=== PATIENT | female | born 1990 | race Caucasian/White ===

== ENCOUNTER 2016-04-04 22:34 | Observation (INO) | payer OTHER ==
--- NOTE | 2016-04-04 22:45 | EDPHY ---
H & P Stated Complaint: pt c/o R flank/lower back x 2 days HPI/ROS: HPI CHIEF COMPLAINT: Right lower quadrant and right upper quadrant abdominal pain HISTORY OF PRESENT ILLNESS: This patient very pleasant 25-year-old female, denies any significant medical history except for anxiety and depression, only surgical history is for laparoscopic of the abdomen to rule out endometriosis which she does not have, she presents to the emergency room with progressively worsening of 2 days of right lower quadrant abdominal pain and right upper quadrant abdominal pain.patient tells me that is worse on the right upper quadrant than right lower quadrant, Patient states she does have nausea with this however no fever, no vomiting. Patient tells me that for the past 2 days she has had a progression of onset of abdominal pain it is most focally tender periumbilical right lower quadrant. Denies urinary symptoms, denies fever, denies back pain. She does tell me that the pain sometimes radiates around to the right flank. Past Medical History:Includes anxiety, depression Past Surgical History: laparoscopic for endometriosis Social History: Lives in [place], works as a medical administrator here at [employer] denies daily use drugs alcohol tobacco products Family History: Noncontributory ROS REVIEW OF SYSTEMS: A comprehensive 10 point review of systems is otherwise negative aside from elements mentioned in the history of present illness. Exam Constitutional triage nursing summary reviewed, vital signs reviewed, awake/ alert. Eyes normal conjunctivae and sclera, EOMI, PERRLA. HENT normal inspection, atraumatic, moist mucus membranes, no epistaxis, neck supple/ no meningismus, no raccoon eyes. Respiratory clear to auscultation bilaterally, normal breath sounds, no respiratory distress, no wheezing. Cardiovascular rate normal, regular rhythm, no murmur, no edema, distal pulses normal. Gastrointestinal soft, mild tender palpation in the right lower quadrant,also has some mild tenderness in the right upper quadrant, no guarding or peritoneal signs, , normal bowel sounds, no distension, no pulsatile mass. Genitourinary no CVA tenderness. Musculoskeletal no midline vertebral tenderness, full range of motion, no calf swelling, no tenderness of extremities, no meningismus, good pulses, neurovascularly intact. Skin pink, warm, & dry, no rash, skin atraumatic. Neurologic awake, alert and oriented x 3, AAOx3, moves all 4 extremities equally, motor intact, sensory intact, CN II-XII intact, normal cerebellar, normal vision, normal speech. Psychiatric normal mood/affect. Heme/Lymph/Immune no lymphadenopathy. Differential diagnosis includes but is not limited to and in no particular order : Bowel obstruction, appendicitis, gallbladder disease, diverticulitis, colitis , enteritis, perforated viscus, gastritis, GERD, esophagitis, urinary tract infection, pyelonephritis, kidney stones Medical Decision Making: The patient had an IV established will obtain blood work, she received IV fluid bolus normal saline, IV morphine 4 mg, IV Phenergan 6.25 mg for nausea, she will need a CT scan of her abdomen pelvis with IV contrast to rule out acute appendicitis, will check urinalysis, . Re-evaluation: CT scan of the abdominal with IV contrast. The results of the study are negative for acute inflammation specifically cannot visualize the appendix however no evidence of secondary findings of acute appendicitis, it is noted that her gallbladder looks distended, multiple gallstones no pericholecystic fluid or inflammation seen on CT. The study was read by Dr. Mon . I viewed the images myself on the PACS system. Ultrasound of the Abdomen right upper quadrant. The results of the study are this shows distended gallbladder, sludge and multiple gallstones in the gallbladder, there is a 1.5 cm impacted gallstone in the gallbladder neck no ductal dilatation, no significant gallbladder wall thickening . I discussed the results of this study with the radiologist Dr. Vasquez. 0130: I have consulted Dr. No with General surgery to admit this patient for biliary colic, impacted stone in the gallbladder neck. At this time he is evaluating the patient in the emergency room. Plan is for admission pain control IV antibiotics most likely laparoscopic cholecystectomy Source: Patient - Medical/Surgical History Hx Asthma: Yes Hx Chronic Respiratory Disease: No Hx Diabetes: No Hx Cardiac Disease: No Hx Renal Disease: No Hx Cirrhosis: No Hx Alcoholism: No Hx HIV/AIDS: No Hx Splenectomy or Spleen Trauma: No Other PMH: Depression, reactive airway disease, abd laproscopy - Social History Smoking Status: Never smoked Constitutional: Initial Vital Signs Temperature (C) 37.1 C 04/04/16 22:37 Heart Rate 77 04/04/16 22:37 Respiratory Rate 16 04/04/16 22:37 Blood Pressure 144/77 H 04/04/16 22:37 O2 Sat (%) 98 04/04/16 22:37 O2 Delivery Mode Room Air Allergies/Adverse Reactions: metronidazole [From Flagyl] Allergy (Verified 04/04/16 22:40) sunscreen Allergy (Uncoded 04/13/14 22:00) Home Medications: Medication Instructions Recorded Sertraline HCl [Zoloft 50mg (*)] 50 mg PO DAILY 04/13/14 Levonorgestrel-Ethin Estradiol 1 each PO HS 04/04/16 [Quasense 0.15-0.03 mg Tablet] buPROPion SR [Wellbutrin 100mg SR 100 mg PO BID 04/04/16 (*)] ALPRAZolam [Xanax 0.5 MG (*)] 0.5 mg PO HS PRN 04/05/16 Herbals/Supplements -Info Only 1 ea PO DAILY 04/05/16 Zolpidem Tartrate [Ambien 5MG (*)] 10 mg PO HS PRN 04/05/16 oxyCODONE/APAP 5/325 [Percocet 1 - 2 tab PO Q4 PRN #10 tab 04/05/16 5/325 (*)] Medical Decision Making - Data Points Laboratory Results: Laboratory Results 04/04/16 22:58 Microbiology Results: MICROBIOLOGY 04/04/16 22:59 Urine,Clean Catch Urine Culture - Preliminary Medications Given: Discontinued Medications Hydromorphone HCl (Dilaudid) 0.2 - 0.4 mg IVP Q4 PRN PRN Reason: Pain, Severe Unable to Take PO Stop: 04/15/16 01:45 Last Admin: 04/05/16 08:38 Dose: 0.4 mg Sodium Chloride (Ns) 1,000 mls @ 0 mls/hr IV ONCE ONE PRN Reason: Wide Open Stop: 04/04/16 22:52 Last Admin: 04/04/16 23:05 Dose: 1,000 mls Potassium Chloride (Potassium Cl 20 Meq (Premix)) 100 mls @ 50 mls/hr IV EDNOW ONE Stop: 04/05/16 02:49 Last Admin: 04/05/16 02:05 Dose: 100 mls Ertapenem 1 gm/ Sodium (Chloride) 100 mls @ 200 mls/hr IV EDNOW ONE PRN Reason: Protocol Stop: 04/05/16 01:24 Last Admin: 04/05/16 01:32 Dose: 100 mls Potassium Chloride/Dextrose/Sod Cl (D5w 1/2 Ns W/ 20 Kcl/L) 1,000 mls @ 125 mls /hr IV CONT [facility] Stop: 10/02/16 01:59 Last Admin: 04/05/16 02:40 Dose: 1,000 mls Ertapenem 1 gm/ Sodium (Chloride) 100 mls @ 200 mls/hr IV DAILY [facility] PRN Reason: Protocol Stop: 05/05/16 08:59 Last Admin: 04/05/16 08:37 Dose: 100 mls Ketorolac Tromethamine (Toradol) 15 mg IVP Q6 [place] Stop: 04/10/16 07:30 Last Admin: 04/05/16 12:21 Dose: 15 mg Ketorolac Tromethamine (Toradol) 30 mg IVP POSTOP ONE Stop: 04/05/16 07:25 Last Admin: 04/05/16 08:29 Dose: Not Given Morphine Sulfate (Morphine) 4 mg IVP EDNOW ONE Stop: 04/04/16 22:52 Last Admin: 04/04/16 23:05 Dose: 4 mg Ondansetron HCl (Zofran) 4 mg IVP Q4 PRN PRN Reason: Nausea/Vomiting, Use 1st Stop: 10/02/16 01:45 Last Admin: 04/05/16 02:40 Dose: 4 mg Oxycodone/Acetaminophen (Percocet 5/325) 1 - 2 tab PO Q4 PRN PRN Reason: Pain, Severe Able to Take PO Stop: 04/15/16 07:23 Last Admin: 04/05/16 10:37 Dose: 1 tab Promethazine HCl (Phenergan Injection) 6.25 mg IVP EDNOW ONE Stop: 04/04/16 22:52 Last Admin: 04/04/16 23:06 Dose: 6.25 mg Departure - Departure Disposition: [facility] Inpatient Acute Clinical Impression: Gallstones Condition: Fair
[2016-04-04] MEDS ORDERED: NS 1,000 ML IV ONE (22:51)
[2016-04-04] MEDS ORDERED: PROMETHAZINE HCL 25 MG/ML VIAL IVP ONE (22:51)
[2016-04-04] MEDS ORDERED: PROMETHAZINE HCL 25 MG/ML VIAL ONE (22:53)
[2016-04-04 22:58] LABS: COLOR YELLOW; LEUKOCYTE ESTERASE,URINE TRACE (NEGATIVE); NITRITE,URINE NEGATIVE (NEGATIVE)
[2016-04-04 23:00] LABS: BACTERIA TRACE /hpf (NONE SEEN)
[2016-04-04] MEDS ORDERED: IOPAMIDOL (ISOVUE-300) 50 ML VIAL IV ONE (23:02)
[2016-04-04 23:04] LABS: % IMMATURE GRANULYOCYTES 0.3 % (0.0-1.1); ABSOLUTE IMMATURE GRANULOCYTES 0.03 10^3/uL (0.00-0.10); ADD DIFF? NO; ADD MORPH? NO; ADD SCAN? NO; ATYPICAL LYMPHOCYTE FLAG 0 (0-99); FRAGMENT RBC FLAG 0 (0-99); HEMOGLOBIN 14.3 g/dL (12.6-16.3); LEFT SHIFT FLG 0 (0-99); LIPEMIA HEMOLYSIS FLAG 80 (0-99); MEAN CELL HEMOGLOBIN 29.5 pg (27.9-34.1); MEAN CELL HEMOGLOBIN CONCENTR. 33.3 g/dL (32.4-36.7); MEAN CELL VOLUME 88.8 fL (81.5-99.8); MEAN PLATELET VOLUME 10.8 fL (8.7-11.7); PLATELET CLUMPS FLAG 20 (0-99); PLATELET COUNT 294 10^3/uL (150-400); RED BLOOD CELL COUNT 4.84 10^6/uL (4.18-5.33); RED CELL DISTRIBUTION WIDTH 12.9 % (11.5-15.2)
[2016-04-04 23:13] LABS: APTT 27.5 SEC (23.0-38.0); INR 0.99 (0.83-1.16)
[2016-04-04 23:33] LABS: ALBUMIN 3.9 g/dL (3.5-5.0); BILIRUBIN,TOTAL 0.6 mg/dL (0.1-1.4); BILIRUBIN-CONJUGATED 0.3 mg/dL (0.0-0.5); BILIRUBIN-UNCONJUGATED 0.3 mg/dL (0.0-1.1); TOTAL PROTEIN 7.2 g/dL (6.3-8.2)
[2016-04-05] MEDS ORDERED: POTASSIUM Cl (KCl) 100 ML IV ONE (00:50)
[2016-04-05] MEDS ORDERED: ERTAPENEM 1 GM in NS 100 ML IV ONE (00:55)
[2016-04-05] MEDS ORDERED: ONDANSETRON 4 MG/2 ML VIAL IVP PRN (01:46)
[2016-04-05] MEDS ORDERED: D5W 1/2 NS W/ 20 KCl/L 1,000 ML IV SCH (02:00)
--- NOTE | 2016-04-05 02:12 | GHP ---
[f rep st] PREOP HISTORY AND PHYSICAL DATE OF ADMISSION: 04/05/2016 HISTORY OF PRESENT ILLNESS: A 25-year-old female with right upper quadrant abdominal pain radiating into her back. She has had the pain off and on for 2 days, admitted at this time for laparoscopic ch olecystectomy. Gallbladder ultrasound shows multiple stones with 1 impacted in the neck of the gallb ladder. LFTs were normal. She is quite comfortable in between bouts of pain. She does not know of any definite foods that bring this on. She has had no vomiting, no diarrhea, no fever and no abdomin al trauma. A CT scan also shows gallstones, no other etiology for her pain. PAST HISTORY: Includes laparoscopy for possible endometriosis. REVIEW OF SYSTEMS: Reveals she has some depression. PRESENT MEDICATIONS: Wellbutrin, sertraline and an allergy pill. ALLERGIES: Flagyl. PHYSICAL EXAM: GENERAL: Reveals an alert and comfortable 25-year-old female, in no acute distress. VITAL SIGNS: She is afebrile. HEAD AND NECK: No icterus. CHEST: Clear to auscultation and percu ssion. CARDIAC: Regular rhythm. ABDOMEN: Soft. She is tender in the right upper quadrant. No gu arding or rebound. No hernias. No abdominal masses. IMPRESSION: Symptomatic cholelithiasis. PLAN: Laparoscopic cholecystectomy. Risks and options have been fully discussed and she wishes to p camiloeed. We have discussed bile duct injury, retained stones, need for further surgery, hemorrhage, i nfection and other problems and she requests that we proceed. /[id number]/MODL
[2016-04-05 02:38] LABS: AMYLASE 62 IU/L (30-110)
[2016-04-05] MEDS: HYDROmorphONE/DILAUDID 1 MG/ML SYR IVP PRN ×2 (02:40→08:38)
[2016-04-05] MEDS ORDERED: BUPIVACAINE 0.5% 30 ML SDV ONE (03:34)
[2016-04-05] MEDS ORDERED: ceFAZolin 1 GM/5 ML SYR ONE (03:34)
[2016-04-05] MEDS ORDERED: HEPARIN 5,000 UNIT/0.5 ML SYR ONE (03:37)
[2016-04-05 04:14] VITALS: RESP 16
[2016-04-05] MEDS ORDERED: MIDAZOLAM 2 MG/2 ML VIAL ONE (06:19)
[2016-04-05] MEDS ORDERED: PROPOFOL 200 MG/20 ML VIAL ONE (06:24)
[2016-04-05] MEDS ORDERED: fentaNYL 100 MCG/2 ML INJ ONE ×3 (06:24→07:39)
[2016-04-05] MEDS ORDERED: ROCURONIUM 50 MG/5 ML VIAL ONE (06:25)
[2016-04-05] MEDS ORDERED: ONDANSETRON 4 MG/2 ML VIAL ONE (06:26)
[2016-04-05] MEDS ORDERED: METOCLOPRAMIDE 10 MG/2 ML VIAL ONE (06:26)
--- NOTE | 2016-04-05 06:37 | CT ---
CT Scan of the Abdomen and Pelvis (With Contrast) Clinical Indications: Right upper quadrant and right lower quadrant abdominal pain. Technique: Dilute contrast was given orally prior to scanning. 85 mL of Isovue-300 were given intra venously by machine power injection. Multidetector helical CT imaging was performed from the diaphra gm to the symphysis pubis. Dose reduction techniques were utilized. Findings: Abdomen: The lung bases are clear, and there is no significant pleural fluid. The liver is normal. The biliary ducts and are unremarkable. The gallbladder is fluid-filled. There are stones in the gal lbladder but no evidence of pericholecystic fluid or inflammatory change. The pancreas and spleen ar e normal. The adrenal glands and kidneys are normal. No adenopathy and no masses are found. No ane urysm of the abdominal aorta. Pelvis: The urinary bladder is unremarkable. No free fluid in the pelvis. No masses are identified. Bowel loops are normal. The sigmoid, cecum, and uterus are all in the low pelvis. I do not definiti vely visualize an appendix. Impression: 1. Nonvisualization of the appendix. I do not see secondary signs of appendicitis. The cecum terminat es in the low pelvis. 2. Cholelithiasis. The gallbladder is moderately distended, but there is no pericholecystic fluid. Critical results were discussed by Dr. Mon with Dr. Price on April 05, 2016 at 0001 hours. e:molina
--- NOTE | 2016-04-05 06:48 | US ---
Sonography Limited to the Right Upper Quadrant of the Abdomen Clinical History: 25-year-old female presenting to the ED complaining of right upper quadrant pain for a couple of days, worse tonight, with some associated nausea, noted to have cholelithiasis on a CT scan. Technique: A curvilinear 5 megahertz transducer was used to sonographically evaluate the right upper quadrant of the abdomen. Color Doppler was also used. A cine clip through the gallbladder is also provided. Comparison Study: CT scan of the abdomen, dated April 04, 2016, at 11:51 p.m. Findings: The pancreatic contour is normal. The abdominal aorta is normal in size and tapers normally. The visualized IVC is normal in caliber. The main portal vein is patent. There is no ascites or right pleural effusion. The liver is normal in size, measuring 15.0 cm along the right midaxillary line. There is no focal hepatic mass, nor is there any intrahepatic or extrahepatic bile duct dilatation. The common bile duct measures 3.8 mm. The gallbladder is hydropic, measuring 9.7 x 3.0 cm, and the wall thickness is normal, measuring 1.4 mm. There are mobile echogenic stones which shadow, although there is an impacted stone near the gallbladder neck measuring 1.5 cm in diameter, not moving despite supine, left lateral decubitus, and "sitting up" maneuvers. There is no pericholecystic fluid or wall hyperemia, and the patient was not tender while scanning over the gallbladder. The right kidney is normal, measuring 10.5 x 3.7 x 4.8 cm. The right renal cortical thickness is normal, measuring 1.1 cm. There is no hydronephrosis or perinephric fluid. I provided a preliminary interpretation to Dr. Miguelangel Price at 12:50 a.m. on April 05, 2016 regarding the above findings. My final interpretation is concordant with my initial impression. Impression: Gallbladder hydrops with gallbladder sludge and cholelithiasis, including an impacted 1.5 cm gallstone near the gallbladder neck. There is no secondary evidence of cholecystitis, or bile duct dilatation. POS99 MTDD
[2016-04-05] MEDS ORDERED: NEOSTIGMINE METHYLSULFATE 5 MG/5 ML SYR ONE (06:57)
[2016-04-05] MEDS ORDERED: GLYCOPYRROLATE 0.2 MG/1 ML VIAL ONE ×2 (06:57→06:58)
[2016-04-05] MEDS ORDERED: KETOROLAC 30 MG/1 ML SDV IVP ONE (07:24)
[2016-04-05] MEDS ORDERED: OXYCODONE/APAP 5/325 TAB PO PRN (07:24)
--- NOTE | 2016-04-05 07:27 | SOAPPROG ---
[facility] Progress Note Assessment/Plan: Assessment: 25 female admitted at 1:30 am for acute cholecystitis with large stones and normal LFTs risks and options fully discussed and she wishes to proceed Plan: soco almaguer 04/05/16 07:25 Objective: Vital Signs Temp Pulse Resp BP Pulse Ox 36.7 C 116 H 16 126/82 H 98 04/05/16 04:00 04/05/16 04:00 04/05/16 04:00 04/05/16 04:00 04/05/16 04:00 04/04/16 04/05/16 04/06/16 05:59 05:59 05:59 Intake Total 1302 Balance 1302 PT 13.0 SEC (12.0-15.0) 04/04/16 22:58 INR 0.99 (0.83-1.16) 04/04/16 22:58 ICD10 Worksheet Patient Problems: Problems Problem Status Diagnosed Gallstones Acute
--- NOTE | 2016-04-05 07:34 | POSTOPPROG ---
Post Op Note Date of Operation: 04/05/16 Surgeon: Vitaliy No Plastic Injection Mold Maker: familia Anesthesiologist: josef Anesthesia: GET(General Endotracheal) Pre-op Diagnosis: acute cholecystitis Post-op Diagnosis: same Indication: pain Procedure: lap tripp Findings: large stones, hydrops with wall edema Inf/Abcess present in the surg proc area at time of surgery?: Yes Depth: Organ Space EBL: Minimal Complications: 0 Specimen(s): gallbladder
[2016-04-05] MEDS ORDERED: ERTAPENEM 1 GM in NS 100 ML IV SCH (09:00)
--- NOTE | 2016-04-05 09:17 | GOP ---
[f rep st] OPERATIVE REPORT DATE OF OPERATION: 04/05/2016 SURGEON: Vitaliy No MD IRRIGATION WORKER: ANTON Giles ANESTHESIOLOGIST: Todd Magaña MD PREOPERATIVE DIAGNOSIS: Acute cholecystitis and cholelithiasis. POSTOPERATIVE DIAGNOSIS: Acute cholecystitis and cholelithiasis. PROCEDURE PERFORMED: Laparoscopic cholecystectomy. FINDINGS: Patient was found to have multiple large stones obstructing the neck of the gallbladder wi th hydrops and edema of the wall of the gallbladder and small ducts. DESCRIPTION OF PROCEDURE: Patient was taken to the operating room, where she received satisfactory g eneral endotracheal anesthesia by Dr. Magaña. She was placed in the supine position, prepped and mitul ped in the usual sterile fashion. Infraumbilical incision was made. A Veress needle inserted. Pneu moperitoneum was established. Trocar was introduced. Laparoscope introduced. Good visualization wa s obtained. Three other trocars were placed in the upper abdomen under direct vision. The gallbladd er was markedly distended. It was elevated up. The cystic triangle was carefully dissected free and exposed. The neck of the gallbladder was retracted away from the hilum. The cystic duct and cystic artery were isolated. A good clear view was obtained, and both structures were hemoclipped and divi ded. The peritoneum of the gallbladder was incised. The gallbladder was dissected free from the bed in the hepatic fossa and extracted through the upper midline port site. Wound was irrigated. Hemos tasis was assured. Trocars were removed under direct vision. Trocar sites were closed with 0 Vicryl for the fascia, 4-0 Monocryl subcuticular stitch for the skin. All layers were infiltrated with 0.5 % Marcaine. She tolerated the procedure well, was taken to the recovery room in good condition. The re were no complications. /[id number]/MODL
[2016-04-05 10:32] VITALS: O2SAT 93
[2016-04-05] MEDS ORDERED: ALPRAZolam 0.5 MG TAB PO PRN (10:59)
[2016-04-05] MEDS ORDERED: ZOLPIDEM TARTRATE 5 MG TAB PO PRN (10:59)
[2016-04-05 11:49] VITALS: BP 115/62; PULSE 86; TEMP 98.2
[2016-04-05] MEDS ORDERED: KETOROLAC 15 MG/1 ML SDV IVP SCH (12:00)
[2016-04-05] MEDS ORDERED: QUASENSE PO SCH (21:00)
[2016-04-05] MEDS ORDERED: buPROPion SR 100 MG TAB PO SCH (21:00)
[2016-04-05] MEDS ORDERED: LEVONORGESTREL ETHIN ESTRADIOL PO SCH (21:00)
[2016-04-06] MEDS ORDERED: SERTRALINE HCL 50 MG TAB PO SCH (09:00)
== END 2016-04-05 16:08 | disposition home or self-care (01) ==
LOC: INTOOBSV 04-05 01:29 → F3E 04-05 02:18
PROVIDERS: ADMIT Surgery; ATTEND Surgery
PROC: 0FT44ZZ Resection of Gallbladder, Percutaneous Endoscopic Approach (ICD-10-PCS; principal; 2016-04-05 05:45)
DX: K80.00 Calculus of gallbladder with acute cholecystitis without obstruction (principal); K82.1 Hydrops of gallbladder; F41.9 Anxiety disorder, unspecified; F32.9 Major depressive disorder, single episode, unspecified
CPT/HCPCS: 47562; 74177; 76705; 96361; 96365; 96367; 96375; 96376; 99285; G0378; 82947-QW; J1170; J1335; J1885; J2250; J2405; J2550; J2704; J2710; J2765; J3010; Q9967